=== PATIENT | female | born 2000 | race Caucasian/White ===

== ENCOUNTER 2019-03-01 07:36 | Emergency (ER) | payer SELFPAY ==
[~2019-03-01] VITALS: Ht 160 cm; Wt 47.6 kg
[2019-03-01 07:41] VITALS: BP 123/80
--- NOTE | 2019-03-01 08:15 | RAD ---
HAND LEFT 3V History: Trauma Comparison: None. Findings: 4 views of the left hand are submitted. There is oblique slightly displaced fracture of the posterior, ulnar aspect of the hamate bone. Impression: 1. There is oblique slightly displaced fracture of the posterior, ulnar aspect of the hamate bone. Electronically signed by: Theodore Sapp MD (03/01/2019 8:12 AM) [facility]
[2019-03-01] MEDS ORDERED: HYDR-3164 PO (08:48)
--- NOTE | 2019-03-01 08:50 | PHYS DOC ---
Past Medical History Past Medical History: No Pertinent History Past Surgical History: No Surgical History Alcohol Use: Occasionally Drug Use: Marijuana Adult General Chief Complaint Chief Complaint: HAND PROBLEM HPI HPI Patient is a 18 year old female punched a mirror on pain is increasing swelling noted moderate nonradiating dorsum of hand Review of Systems Review of Systems Constitutional: Denies fever or chills [] Eyes: Denies change in visual acuity, redness, or eye pain [] HENT: Denies nasal congestion or sore throat [] Respiratory: Denies cough or shortness of breath [] Cardiovascular: No additional information not addressed in HPI [] GI: Neurologic: Denies headache, focal weakness or sensory changes [] Endocrine: Denies polyuria or polydipsia [] All other systems were reviewed and found to be within normal limits, except as documented in this note. Allergies Allergies Allergies Coded Allergies Type Severity Reaction Last Updated Verified Penicillins Allergy Unknown 03/01/19 Yes Physical Exam Physical Exam Constitutional: Well developed, well nourished, no acute distress, non-toxic appearance. [] HENT: Normocephalic, atraumatic, bilateral external ears normal, oropharynx moist, no oral exudates, nose normal. [] Eyes: PERRLA, EOMI, conjunctiva normal, no discharge. [] Neck: Normal range of motion, no tenderness, supple, no stridor. [] Pulmonary: Normal respiratory effort no increased work of breathing no obvious chest wall trauma Repalpation of the heart rate after the patient had improved pain with rest was 105-110 on my evaluation Abdomen: Bowel sounds normal, soft, no tenderness, no masses, no pulsatile masses. [] Skin: Warm, dry, no erythema, no rash. [] Back: No tenderness, no CVA tenderness. [] Extremities:ttp of hand latearl aspect no deformity no snuffbox ttp Neurologic: Alert and oriented X 3, normal motor function, normal sensory function, no focal deficits noted. [] Psychologic: Affect normal, judgement normal, mood normal. [] Current Patient Data Vital Signs Vital Signs Date Time Temp Pulse Resp B/P (MAP) Pulse Ox O2 Delivery O2 Flow Rate FiO2 03/01/19 07:41 97.9 119 16 123/80 (94) 98 Room Air 97.9 EKG EKG [] Radiology/Procedures Radiology/Procedures [] Impressions: Findings: 4 views of the left hand are submitted. There is oblique slightly displaced fracture of the posterior, ulnar aspect of the hamate bone. Impression: 1. There is oblique slightly displaced fracture of the posterior, ulnar aspect of the hamate bone. Electronically signed by: Katherin Richardson MD (03/01/2019 8:12 AM) [facility] DICTATED and SIGNED BY: KATHERIN RICHARDSON MD DATE: 03/01/1912 Course & Med Decision Making Course & Med Decision Making Pertinent Labs and Imaging studies reviewed. (See chart for details) []Reviewed with Dr. Mariella ortega ulnar gutter splint would be reasonable Dragon Disclaimer Dragon Disclaimer This electronic medical record was generated, in whole or in part, using a voice recognition dictation system. Departure Departure Impression: Primary Impression: Closed hamate fracture Disposition: 01 HOME, SELF-CARE Condition: STABLE Patient Instructions: Hamate (Hook) Fracture-SportsMed Scripts Hydrocodone/Apap 5-325 (NORCO 5-325 TABLET) 1 Each Tablet 1-2 EACH PO PRN Q6HRS PRN for PAIN, #15 as needed for pain Prov: LEONELA SADLER MD 03/01/19 LEONELA SADLER MD Mar 01, 2019 08:50
== END 2019-03-01 09:23 | disposition home or self-care (01) ==
LOC: ER 07:36
DX: S62.142A Displaced fracture of body of hamate [unciform] bone, left wrist, initial encounter for closed fracture (principal); Z88.0 Allergy status to penicillin; W22.8XXA Striking against or struck by other objects, initial encounter; Y93.89 Activity, other specified; Y92.89 Other specified places as the place of occurrence of the external cause; Y99.8 Other external cause status
CPT/HCPCS: 29125; 73130; 96372; 99284-25

== ENCOUNTER 2019-03-03 17:40 | Emergency (ER) | payer SELFPAY ==
[~2019-03-03] VITALS: Ht 167.6 cm; Wt 47.6 kg
[~2019-03-03 17:40] MED LIST: HYDR-3164 PO
[2019-03-03 18:20] VITALS: BP 117/63
--- NOTE | 2019-03-03 19:22 | PHYS DOC ---
Past Medical History Past Medical History: No Pertinent History (FIORDALIZA PRADO APRN) Past Surgical History: No Surgical History (FIORDALIZA PRADO APRN) Alcohol Use: Occasionally Drug Use: Marijuana (FIORDALIZA PRADO APRN) Adult General Chief Complaint Chief Complaint: CAST CHECK HPI HPI Patient is a 18 year old female who presents to the emergency department with complaints of an uncomfortable sensation inside of the splint that was placed in her left forearm 2 days ago. Patient states that her fingers have also been swelling. She denies taking off the splint herself. She denies any numbness, tingling, or decreased sensation of her fingers. Patient states it feels like something is poking her forearm. She currently rates her pain a 4 out of 10 on the pain scale she denies any alleviating or exacerbating factors, she states the pain is a constant irritation. All other ROS is neg unless otherwise noted in HPI. (FIORDALIZA PRADO APRN) Review of Systems Review of Systems See Above (FIORDALIZA PRADO APRN) Allergies Allergies Allergies Coded Allergies Type Severity Reaction Last Updated Verified Penicillins Allergy Unknown 03/01/19 Yes (LEONELA SADLER MD) Physical Exam Physical Exam See Above Constitutional: Well developed, well nourished, no acute distress, non-toxic appearance. [] HENT: Normocephalic, atraumatic, bilateral external ears normal, oropharynx moist, no oral exudates, nose normal. [] Eyes: PERRLA, EOMI, conjunctiva normal, no discharge. [] Neck: Normal range of motion, no stridor. [] Cardiovascular:Heart rate regular rhythm Lungs & Thorax: Respirations even and unlabored, no retractions, no respiratory distress Skin: Warm, dry, no erythema, no rash. [] Extremities: No cyanosis, 1+ edema left wrist and fingers Neurologic: Alert and oriented X 3, normal sensory function, no focal deficits noted. [] Psychologic: Affect normal, judgement normal, mood normal. [] (FIORDALIZA PRADO APRN) Current Patient Data Vital Signs Vital Signs Date Time Temp Pulse Resp B/P (MAP) Pulse Ox O2 Delivery O2 Flow Rate FiO2 03/03/19 18:20 97.6 85 18 117/63 (81) 99 Room Air 97.6 (LEONELA SADLER MD) EKG EKG [] (FIORDALIZA PRADO APRN) Radiology/Procedures Radiology/Procedures Patient's splint was removed by myself, there was a small fragment of loose Ortho-Glass inside of the splint, this fragment of Ortho-Glass was removed and the splint was reapplied using the same materials. Patient reported relief of the irritating sensation after the splint was reapplied. No complications.[] (FIORDALIZA PRADO APRN) Course & Med Decision Making Course & Med Decision Making Pertinent Labs and Imaging studies reviewed. (See chart for details) [] (FIORDALIZA PRADO APRN) Course & Med Decision Making Staff Physician Addendum: I was working in the ER during the course of this patient's visit. I was available for consultation as needed, but I was not directly involved in the care of this patient. (LEONELA SADLER MD) Dragon Disclaimer Dragon Disclaimer This electronic medical record was generated, in whole or in part, using a voice recognition dictation system. (FIORDALIZA PRADO APRN) Departure Departure Impression: Primary Impression: Aftercare for cast or splint check or change Disposition: 01 HOME, SELF-CARE Condition: STABLE Referrals: NO PCP (PCP) Patient Instructions: Cast or Splint Care, [id number] Additional Instructions: Follow-up with ortho this week as previously instructed. Return to the ER for any problems. FIORDALIZA PRADO APRN Mar 03, 2019 19:22 LEONELA SADLER MD Mar 03, 2019 22:34
== END 2019-03-03 19:27 | disposition home or self-care (01) ==
LOC: ER 17:40
DX: Z47.89 Encounter for other orthopedic aftercare (principal); Z88.0 Allergy status to penicillin; F12.90 Cannabis use, unspecified, uncomplicated
CPT/HCPCS: 99281

== ENCOUNTER 2020-01-26 17:18 | Emergency (ER) | payer OTHER ==
[~2020-01-26] VITALS: Ht 160 cm; Wt 52.9 kg
[~2020-01-26 17:18] MED LIST changes: -CYCL10TA2 PO; -GADOTERATE 7.5 MMOL/15ML VIAL. IVP ONE; -METH4TAB2 PO; -NAPR-514 PO
[2020-01-26 18:25] VITALS: BP 102/70
[2020-01-26] MEDS ORDERED: METH4TAB2 PO (18:55)
[2020-01-26] MEDS ORDERED: NAPR-514 PO (18:55)
[2020-01-26] MEDS ORDERED: CYCL10TA2 PO (18:55)
--- NOTE | 2020-01-26 18:55 | PHYS DOC ---
Past Medical History Past Medical History: No Pertinent History Past Surgical History: No Surgical History Smoking Status: Current Every Day Smoker Additional Information: 04/24 ppd Alcohol Use: Occasionally Drug Use: Marijuana General Adult EDM: Chief Complaint: SHOULDER INJURY HPI: HPI: Patient is a 19 year old female with no significant medical history who presents to the ED today complaining of mild pain to the right shoulder that began this afternoon. Patient states she has been moving items all day. Denies any known injury. States the pain is worse with certain movements. Describes the pain as sharp and intermittent. Denies any pain radiating to bilateral upper extremities, denies any numbness or tingling to the right upper extremity. Review of Systems: Review of Systems: Constitutional: Denies fever or chills. [] Musculoskeletal: Reports right shoulder pain Integument: Denies rash. [] Neurologic: Denies headache, focal weakness or sensory changes. [] Psychiatric: Denies depression or anxiety. [] Heart Score: Risk Factors: Risk Factors: DM, Current or recent (<one month) smoker, HTN, HLP, family history of CAD, obesity. Risk Scores: Score 0 - 3: 2.5% MACE over next 6 weeks - Discharge Home Score 4 - 6: 20.3% MACE over next 6 weeks - Admit for Clinical Observation Score 7 - 10: 72.7% MACE over next 6 weeks - Early Invasive Strategies Allergies: Allergies: Allergies Coded Allergies Type Severity Reaction Last Updated Verified Penicillins Adverse Reaction Intermediate nausea and vomiting 01/26/20 Yes Physical Exam: PE: Constitutional: Well developed, well nourished, no acute distress, non-toxic appearance. [] Skin: Warm, dry, no erythema, no rash. [] Back: No tenderness, no CVA tenderness. [] Extremities: Right shoulder with no obvious deformity. Full range of motion to the right shoulder, adequate radial, medial, ulnar sensation to the right upper extremity. +2 right radial pulse. Cap refill less than 2 seconds right fingers Neurologic: Alert and oriented X 3, normal motor function, normal sensory function, no focal deficits noted. [] Psychologic: Affect normal, judgement normal, mood normal. [] Current Patient Data: Vital Signs: Vital Signs Date Time Temp Pulse Resp B/P (MAP) Pulse Ox O2 Delivery O2 Flow Rate FiO2 01/26/20 18:25 98.6 77 18 102/70 (81) 98 Room Air 98.6 EKG: EKG: [] Radiology/Procedures: Radiology/Procedures: [] Course & Med Decision Making: Course & Med Decision Making Pertinent Labs and Imaging studies reviewed. (See chart for details) This is a 19-year-old female patient presenting to the ED today with right shoulder strain. Discharged with Medrol Dosepak, naproxen and Flexeril. Follow-up with orthopedic doctor in 1 to 2 weeks as needed. Dragon Disclaimer: Dragon Disclaimer: This electronic medical record was generated, in whole or in part, using a voice recognition dictation system. Departure Departure Impression: Primary Impression: Strain of right shoulder Qualified Codes: S46.911A - Strain of unspecified muscle, fascia and tendon at shoulder and upper arm level, right arm, initial encounter Disposition: HOME, SELF-CARE Condition: STABLE Referrals: NO PCP (PCP) RICK CASTELLON MD follow up in 1 week Patient Instructions: Shoulder Exercises, Generic, SportsMed, Shoulder Sprain Additional Instructions: You were evaluated in the emergency room for right shoulder strain. We encourage you to ice and elevate your right upper extremity. To encourage you to take the right upper extremity through full range of motion several times a day. Take the prescribed medications as ordered. Do not lift anything more than a gallon of milk for 1 week. Scripts Naproxen (NAPROXEN) 500 Mg Tablet 1 TAB PO BID for pain, #20 TAB 0 Refills Prov: MASON RAGLAND [employer] 10//20 Cyclobenzaprine Hcl (CYCLOBENZAPRINE HCL) 10 Mg Tablet 1 TAB PO TID, #30 TAB Prov: MASON RAGLAND [employer] 10/5/20 Methylprednisolone (MEDROL) 4 Mg Tab.ds.pk 1 PKG PO UD, #1 PKG Prov: MASON RAGLAND [employer] 10//20 MASON RAGLAND APRN Jan 26, 2020 18:55
== END 2020-01-26 19:14 | disposition home or self-care (01) ==
LOC: ER 17:18
DX: S46.911A Strain of unspecified muscle, fascia and tendon at shoulder and upper arm level, right arm, initial encounter (principal); F17.200 Nicotine dependence, unspecified, uncomplicated; Z88.0 Allergy status to penicillin; X50.9XXA Other and unspecified overexertion or strenuous movements or postures, initial encounter; Y93.89 Activity, other specified; Y92.89 Other specified places as the place of occurrence of the external cause; Y99.8 Other external cause status
CPT/HCPCS: 99283

== ENCOUNTER → 2020-01-26 | Outpatient (CLI) | payer OTHER ==
[~2020-01-26] MED LIST changes: +ARIP10TA9 PO; +CLON0.5T PO; +CLON1TAB PO; +CYCL10TA2 PO; +FLUO10CA13 PO; +GADOTERATE 7.5 MMOL/15ML VIAL. IVP ONE; +LAMO25TA5 PO; +METH4TAB2 PO; +NAPR-514 PO; +TRAZ150T49 PO
--- NOTE | 2020-01-26 10:08 | KCIC ---
BRAIN WO/W CONTRAST History:Reason: HEADACHES/TRAUMATIC BRAIN INJURY / Spl. Instructions: 10cc Clariscan / History: Pt has a hx of hitting her head on things. Trauma. Headaches and head pain. Technique: Multiplanar, multi sequential without and with intravenous contrast MR imaging was performed of the brain. Comparison: None Findings: No acute infarct. No intracranial hemorrhage. No mass effect. No hydrocephalus. Extra-axial spaces are unremarkable. No pathologic enhancement. Imaged orbits are unremarkable. Imaged paranasal sinuses and mastoid air cells are clear. Impression: 1. No acute intracranial abnormality. Electronically signed by: Mauro Khan DO (01/26/2020 10:05 AM) [id number]
== END ==
LOC: KCIC MRI 07:54
PROVIDERS: ATTEND Family Medicine
DX: R51.9 Headache, unspecified (principal); Z87.828 Personal history of other (healed) physical injury and trauma
CPT/HCPCS: 70553; A9575